=== PATIENT | male | born 1985 | race Caucasian/White ===

== ENCOUNTER 2016-11-03 10:11 | Emergency (ER) | payer MEDICARE ==
[~2016-11-03] VITALS: Ht 180.3 cm; Wt 108.9 kg
[~2016-11-03 10:11] MED LIST: LEVE100020 PO; LEVE500T56 PO
[2016-11-03 10:17] VITALS: BP 139/70
[2016-11-03] MEDS ORDERED: MORPHINE SULFATE 10 MG/ML VIAL. IM ONE (11:00)
[2016-11-03] MEDS ORDERED: diazePAM 5 MG TABLET PO ONE (11:00)
[2016-11-03] MEDS ORDERED: DEXAMETHASONE SOD PHOS 20 MG/5 ML VIAL. IM ONE (11:00)
[2016-11-03] MEDS ORDERED: METH4TAB2 PO (11:02)
[2016-11-03] MEDS ORDERED: CYCL10TA2 PO (11:02)
--- NOTE | 2016-11-03 11:02 | PHYS DOC ---
Past Medical History Past Medical History: Hypertension, Seizure, Other Additional Past Medical Histor: BRAIN CA Past Surgical History: Other Additional Past Surgical Histo: BRAIN SX Alcohol Use: Rarely Drug Use: None Adult General Chief Complaint Chief Complaint: LOWER BACK PAIN OR INJURY HPI HPI Patient is a 31 year old male with history of hypertension and seizures who presents today with chronic low back pain rated at 10 out of 10 worse on movement and sitting in certain positions that has been going on since he was 19. Patient states he follows up with his own PCP. He states his PCP gave him an anti-inflammatory for this pain. Patient states it's not helping. Patient states he has an appointment to start physical therapy on Friday this week. Patient states he cannot wait for that long. Patient states the pain radiates to bilateral lower extremities. Denies any loss of bowel bladder function. PCP Dr. Flaherty. Review of Systems Review of Systems Constitutional: Denies fever or chills [] Eyes: Denies change in visual acuity, redness, or eye pain [] HENT: Denies nasal congestion or sore throat [] GI: Denies abdominal pain, nausea, vomiting, bloody stools or diarrhea [] : Denies dysuria or hematuria [] Musculoskeletal: Chronic low back pain Integument: Denies rash or skin lesions [] Neurologic: Denies headache, focal weakness or sensory changes [] Endocrine: Denies polyuria or polydipsia [] Current Medications Current Medications Current Medications Medications (Trade) Dose Ordered Sig/John Start Time Stop Time Status Last Admin Dose Admin Dexamethasone Sodium Phosphate (Decadron) 10 mg 1X ONCE 11/03/16 11:00 11/03/16 11:01 Diazepam (Valium) 5 mg 1X ONCE 11/03/16 11:00 11/03/16 11:01 Morphine Sulfate 5 mg 1X ONCE 11/03/16 11:00 11/03/16 11:01 Allergies Allergies Allergies Coded Allergies Type Severity Reaction Last Updated Verified No Known Drug Allergies 06/07/13 No Physical Exam Physical Exam Constitutional: Well developed, well nourished, no acute distress, non-toxic appearance. [] HENT: Normocephalic, atraumatic, bilateral external ears normal, oropharynx moist, no oral exudates, nose normal. [] Eyes: PERRLA, EOMI, conjunctiva normal, no discharge. [] Abdomen: Bowel sounds normal, soft, no tenderness, no masses, no pulsatile masses. [] Skin: Warm, dry, no erythema, no rash. [] Back: Diffuse paraspinal muscle tenderness to bilateral lower lumbar region, no midline tenderness, no CVA tenderness. Patient is standing up. Exam difficult. Extremities: No tenderness, no cyanosis, no clubbing, ROM intact, no edema. [] Neurologic: Alert and oriented X 3, normal motor function, normal sensory function, no focal deficits noted. [] Psychologic: Affect normal, judgement normal, mood normal. [] Current Patient Data Vital Signs Vital Signs Date Time Temp Pulse Resp B/P Pulse Ox O2 Delivery O2 Flow Rate FiO2 11/03/16 10:17 97.9 66 18 96 Room Air 97.9 EKG EKG [] Radiology/Procedures Radiology/Procedures [] Course & Med Decision Making Course & Med Decision Making Pertinent Labs and Imaging studies reviewed. (See chart for details) Patient is in the ED complaining of chronic low back pain. He follows up with his own primary care doctor who has him on sulindac. Talked to patient about the chronicity of his symptoms. He has an appointment to start physical therapy on Friday. Offered him pain relief in the ED. Informed him he has to follow- up with his own PCP if he needs anything stronger for pain. Gave him a prescription for Flexeril and Medrol Dosepak. Dragon Disclaimer Dragon Disclaimer This electronic medical record was generated, in whole or in part, using a voice recognition dictation system. Departure Departure Impression: Primary Impression: Chronic back pain Additional Impression: Chronic sciatica Disposition: HOME, SELF-CARE Condition: STABLE Referrals: BRITTNEY FLAHERTY MD (PCP) Follow-up with your doctor in the next 7 days Patient Instructions: Back Exercises, Back Pain, Adult Additional Instructions: You were seen for chronic low back pain. We highly recommend you continue taking the medicines provided by your doctor. Take the new medicines provided by our Ed. Follow-up with your doctor in the next 7 days. Physical therapy is good. We highly recommend you tend your cessations as scheduled. Scripts Methylprednisolone (Medrol)4 Mg Tab.ds.pk1 Pkg PO UD #1 PKG Prov:[facility] 11/03/16 Cyclobenzaprine Hcl 10 Mg Tablet1 Tab PO TID #30 TAB Prov:[facility] 11/03/16 Problem Qualifiers Primary Impression: Chronic back pain Back pain location: low back pain Back pain laterality: bilateral Sciatica presence: with sciatica Sciatica laterality: bilateral sciatica Qualified Code: M54.42 - Lumbago with sciatica, left side Additional Impression: Chronic sciatica Laterality: right Qualified Code: M54.31 - Sciatica, right side [facility] Nov 03, 2016 11:02
== END 2016-11-03 11:40 | disposition home or self-care (01) ==
LOC: ER 10:11
DX: G89.29 Other chronic pain (principal); M54.42 Lumbago with sciatica, left side; M54.41 Lumbago with sciatica, right side; I10 Essential (primary) hypertension
CPT/HCPCS: 96372; 99284; J1100; J2270

== ENCOUNTER → 2016-11-07 | Outpatient (CLI) | payer MEDICARE ==
[2016-11-03 10:17] VITALS: BP 139/70
[~2016-11-07] MED LIST changes: +CYCL10TA2 PO; +GADOBUTROL 10 MMOL/10 ML VIAL IV ONE; +METH4TAB2 PO
--- NOTE | 2016-11-07 14:16 | RAD ---
PROCEDURE MRI brain with and without contrast. HISTORY Astrocytoma. Chronic headaches. TECHNIQUE Sagittal T1, axial T1, axial T2, axial FLAIR, axial T2 gradient, diffusion imaging with ADC map, post-contrast axial, post-contrast sagittal and post-contrast coronal sequences are provided. 10 milliliters of intravenous Gadavist was administered without complication. COMPARISON April 25, 2016. FINDINGS There are increased areas of enhancement within the operative cavity in the left frontal lobe. There is a solid area of enhancement measuring 15 x 9 millimeters in size. There is a 2nd area more medially and anteriorly measuring 8 x 6 millimeters. There is a 3rd area measuring 3 millimeters. Findings are concerning for tumor progression. In addition, FLAIR hyperintensity about the operative cavity is increased, with effacement of sulci. Nonenhancing tumor is favored over edema. There is no mass effect on the lateral ventricles. The ventricles are normal in size. A few scattered FLAIR hyperintensities unrelated to the resection cavity may be sequela of migraine headaches or post treatment change. They are nonspecific. There is no restricted diffusion to suggest an acute infarct. Intracranial flow voids are preserved. Cervicomedullary junction is unremarkable. There is maxillary and ethmoid mucosal thickening. IMPRESSION - Increased areas of enhancement within the left frontal operative cavity compatible with recurrent tumor. - FLAIR hyperintensity with mass effect and effacement of sulci adjacent to the operative cavity, nonenhancing tumor favored over edema. Electronically signed by: Silvano Parisi MD (November 07, 2016 14:15:12)
== END | disposition home or self-care (01) ==
LOC: MRI 12:18
PROVIDERS: ATTEND Radiology Radiation Oncology
DX: C71.2 Malignant neoplasm of temporal lobe (principal)
CPT/HCPCS: 70553; A9585

== ENCOUNTER → 2017-01-09 | Outpatient (CLI) | payer MEDICARE ==
[~2017-01-09] MED LIST changes: -GADOBUTROL 10 MMOL/10 ML VIAL IV ONE
[2017-01-09] MEDS: GADOBUTROL 10 MMOL/10 ML VIAL IV ONE (11:37)
--- NOTE | 2017-01-09 13:11 | RAD ---
EXAM: MRI BRAIN WITH AND WITHOUT CONTRAST. HISTORY: Status post resection and radiation for oligo astrocytoma in 2013. TECHNIQUE: Magnetic resonance images of the brain were obtained before and after the intravenous administration of 10 mL Gadavist. COMPARISON: November 07, 2016, at April 25, 2016. FINDINGS: There are changes of left frontal craniotomy with underlying tumor resection. Nodular regions of enhancement along the posterior aspect of the resection bed continues to increase in size. The largest measures 2.0 x 1.2 x 1.1 cm as compared with 1.3 x 1.0 x 0.7 cm previously. Another nodule anteromedial to this measures 7 mm and is not clearly changed. A 3 mm nodule anterior and inferior to the main focus is slightly more prominent. Another tiny focus of enhancement along the left frontal irving-white junction on axial image 20 appears new. A focus of T2 hyperintensity within the right frontal subcortical white matter on series 7 image 20 measures 11 x 6 mm is slightly increased. This focus is new since April 25, 2016. FLAIR hyperintensity on the left is unchanged. A few additional small foci in the periventricular white matter are unchanged. There is no diffusion restriction. The ventricles are normal in size and position. There is mild mucosal thickening throughout the sinuses. The orbits are unremarkable. The temporal bones are unremarkable. The calvarium demonstrates no suspicious lesions. IMPRESSION: 1. Foci of enhancement along the posterior aspect of the left frontal resection bed continue to increase consistent with recurrent tumor. 2. A focus of T2/FLAIR hyperintensity within the right frontal subcortical white matter has increased. This indicates contralateral nonenhancing tumor versus developing post radiotherapy change. Electronically signed by: Ilene Tomas MD (01/09/2017 1:08 PM) [id number]
== END | disposition home or self-care (01) ==
LOC: MRI 10:24
PROVIDERS: ATTEND Radiology Radiation Oncology
DX: C71.9 Malignant neoplasm of brain, unspecified (principal); R90.82 White matter disease, unspecified; Z98.890 Other specified postprocedural states
CPT/HCPCS: 70553; A9585

== ENCOUNTER 2017-05-26 18:16 | Emergency (ER) | payer MEDICARE ==
[~2017-05-26] VITALS: Ht 180.3 cm; Wt 113.4 kg
[~2017-05-26 18:16] MED LIST changes: +ONDA8TAB9 PO; +[UNRECOGNIZED DRUG - CODE] PO
[2017-05-26 20:01] VITALS: BP 132/75
--- NOTE | 2017-05-26 23:14 | PHYS DOC ---
Past Medical History Past Medical History: Cancer, Hypertension, Seizure, Other Additional Past Medical Histor: BRAIN TUMOR Past Surgical History: Other Additional Past Surgical Histo: BRAIN SX Alcohol Use: Rarely Drug Use: None Adult General Chief Complaint Chief Complaint: NEURO SYMPTOMS/DEFICITS HPI HPI Patient is a 32 year old with history of glioblastoma blastoma the for who presents with dizziness, tremors and complaints of headache over the past 3 days per nurses report. Upon entering the room, patient states that he is decided to go to where his neurosurgeon and treatment team's. I offered the patient workup in the emergency department, hospital admission and transfer is appropriate. Patient declined care and states that his preference is to be evaluated at [facility]. Patient states he is not unsatisfied with his care at this facility but that . no evaluation performed per patient request. Allergies Allergies Allergies Coded Allergies Type Severity Reaction Last Updated Verified No Known Drug Allergies 06/07/13 No Current Patient Data Vital Signs Vital Signs Date Time Temp Pulse Resp B/P (MAP) Pulse Ox O2 Delivery O2 Flow Rate FiO2 05/26/17 20:01 73 24 98 05/26/17 18:55 98.3 127/81 (96) Room Air 98.3 EKG EKG [] Radiology/Procedures Radiology/Procedures [] Departure Departure Impression: Primary Impression: Left against medical advice Disposition: 07 AGAINST MEDICAL ADVICE Condition: GUARDED Additional Instructions: You have chosen not to be evaluated at [facility] this evening. Please follow-up with doctor of choice as soone as possible or the healthcare system of your choice as soon as possible. NIXON RIZVI DO May 26, 2017 23:14
== END 2017-05-26 20:10 | disposition left against medical advice (07) ==
LOC: ER 18:16
DX: R42 Dizziness and giddiness (principal); R51 Headache; R25.1 Tremor, unspecified; I10 Essential (primary) hypertension
CPT/HCPCS: 99284